=== PATIENT | male | born 1940 | race Caucasian/White ===

== ENCOUNTER 2017-04-16 08:20 | Emergency (ER) | payer MEDICARE, BC ==
--- NOTE | ~2017-04-16 | ER ---
PATIENT'S NAME: ROBERTO CARLOS OVIEDO [facility] AGE: 76 Y [address] ROOM: [place] [address] LOCATION: [facility] ADMIT DATE: 04/16/2017 ER/Outpatient Report DISCHARGE DATE: 04/16/2017 FAMILY PHYSICIAN: Henry Pereira MD ATTENDING PHYSICIAN: Ten Henriquez CHIEF COMPLAINT: Fall. HISTORY OF PRESENT ILLNESS: Mr. Oviedo arrives by ambulance. He was out for a run today and in the parking lot of the [employer] when he apparently fell. He does not recall the fall. He has been a little confused per EMS but is ambulatory. He has multiple cuts to the face and right extremities. He denies any other symptoms at this time. He thinks he may have tripped but it is unclear. PAST MEDICAL HISTORY: Documented on the record and reviewed by me. SOCIAL HISTORY: Documented on the record and reviewed by me. MEDICATIONS: Documented on the record and reviewed by me. ALLERGIES: DOCUMENTED ON THE RECORD AND REVIEWED BY ME. REVIEW OF SYSTEMS: All systems reviewed and negative except as noted in the HPI. PHYSICAL EXAM: VITAL SIGNS: As follows blood pressure 140/89, pulse 89, respiratory rate 18, temperature 97.4, SpO2 is 93% on room air. GENERAL: Age-appropriate male. No obvious pain or distress. NEURO: GCS is 14, the patient is not oriented to date. He is awake, otherwise, follows commands in all extremities. No focal deficits. He does have a mild anterolateral grade amnesia to the event. HEENT: Grossly normocephalic. There is a large area confined ecchymosis to the right lateral forehead with some abrasions. The nose has multiple abrasions, not requiring repair, no septal hematoma. Dried blood in the naris bilateral. The upper and lower lips are macerated with multiple cuts. The right front and adjacent tooth are chipped LS2 both. The tongue is normal. NECK: Supple. Trachea is midline. PATIENT'S NAME: ROBERTO CARLOS OVIEDO [facility] AGE: 76 Y [address] ROOM: [place] [id number] LOCATION: [facility] ADMIT DATE: 04/16/2017 ER/Outpatient Report DISCHARGE DATE: 04/16/2017 FAMILY PHYSICIAN: Henry Pereira MD ATTENDING PHYSICIAN: Ten Henriquez CHEST: Nontender to palpation. HEART: Regular rate and rhythm with no murmurs. LUNGS: Clear to auscultation bilaterally. No rhonchi, wheezes, or rales. ABDOMEN: Soft, nontender, and nondistended. No rebound or guarding. BACK: Normal to inspection and palpation. EXTREMITIES: The right extremity is notable for multiple cuts over the dorsum of the hand across the forearm. Most superficial. There is embedded piece of stone in the distal phalanx of the right pinky and a large flap over the PIP dorsally on the right pinky finger with exposed tendon. No tendon involvement. The right knee with multiple abrasions or contusions. No lacerations, nontender to palpation. SKIN: Otherwise intact. LABORATORY DATA AND X-RAYS: Head CT facial of bones and C-spine CT are all negative per Radiology. Chest x-ray does not reveal any aspirated foreign bodies per my review. EKG reveals sinus rhythm, rate of 80 with normal intervals. Left axis deviation but otherwise unremarkable. No comparison available. CMS with no appreciable abnormalities. CBC is unremarkable. IMPRESSION: 1. Fall with syncope. 2. Multiple facial lacerations and abrasions with tooth fracture. 3. Right hand contusions and abrasions, requiring repair. 4. Multiple lower extremity abrasions, not requiring repair. EMERGENCY DEPARTMENT COURSE: The patient was seen and evaluated as above. CT was obtained to evaluate for any occult fracture in the setting of amnesia. No intracranial hemorrhage or other emergency. No clear reason for patient to have syncopized medically. It appears as though he likely tripped during his run. I did repair the lacerations to his upper and lower lip. Upper lip measured a total of 2.1 cm in total length and required five sutures of 6-0 nylon and Prolene to approximate the lacerations. The lower lip received three 6-0 sutures to approximate. These wounds were copiously explored, irrigated, and palpated, and no foreign material was identified. There were some tooth fragments that were removed from the upper and lower lip. This was prior to the CT scan. The right pinky finger laceration was repaired with 5-0 Nylon suture. Three simple interrupted sutures were placed after performing digital block with 1% lidocaine on the pinky finger and exploring the laceration in a bloodless field and ensuring that there was no tendon or joint capsule involvement. The tendon was explored in its entire range. The area was copiously irrigated and debrided as much as possible. The patient will be started on Keflex for prophylaxis and we will have him PATIENT'S NAME: ROBERTO CARLOS OVIEDO [facility] AGE: 76 Y [address] ROOM: [place] [address] LOCATION: [facility] ADMIT DATE: 04/16/2017 ER/Outpatient Report DISCHARGE DATE: 04/16/2017 FAMILY PHYSICIAN: Henry Pereira MD ATTENDING PHYSICIAN: Ten Henriquez follow up with Dr. Pereira in 3-5 days for suture removal. I did discuss the case with Dr. Pereira to confirm the patient has no significant medical history and Dr. Pereira confirms. The patient should return immediately if there is any other signs or symptoms that are concerning for such. He does in fact have a concussion. MD MARIAH ARNOLD/francisco /[id number] d: 04/16/17 1853 t: 04/22/17 0633, OUTPATIENT REPORT
[2017-04-16 08:54] LABS: BASOPHIL # 0.1 K/uL (0.0-0.2); BASOPHIL % 2.2 %; EOSINOPHIL # 0.2 K/uL (0.0-0.5); EOSINOPHIL % 3.3 %; HEMATOCRIT 45.6 % (37.0-53.0); HEMOGLOBIN 16.2 g/dL (11.0-16.0); IMMATURE GRANULOCYTE % 0.3 %; LYMPHOCYTE % 16.9 %; MCH 33.2 pg (27.0-34.0); MCHC 35.5 gm/dL (32.0-36.5); MCV 93.4 fl (83.0-98.0); MONOCYTE # 0.5 K/uL (0.0-1.0); MPV 9.2 fl (9.4-12.4); NEUTROPHIL # (ANC) 4.1 K/uL (1.4-9.0); NEUTROPHIL % 68.3 %; NRBC % 0 /100WBC (0-0.00); PLATELET COUNT 252 K/uL (150-450); RBC 4.88 M/uL (3.50-5.50); RDW-CV 11.9 % (11.9-14.6)
[2017-04-16 09:09] LABS: ALBUMIN 3.7 gm/dL (3.5-5.0); ANION GAP 12.1 (10.0-19.0); CALCIUM 9.2 mg/dL (8.5-10.5); CREATININE 1.1 mg/dL (0.6-1.3); POTASSIUM 4.1 mMol/L (3.7-5.1); TOTAL BILIRUBIN 0.7 mg/dL (0.0-1.5); TOTAL PROTEIN 7.2 g/dL (6.0-8.4)
== END 2017-04-16 10:06 | disposition disaster alternative care site (69) ==
LOC: GACC 08:20
PROVIDERS: Emergency Medicine
PROC: 0CQ1XZZ Repair Lower Lip, External Approach (ICD-10-PCS; principal; 2017-04-16)
PROC: 0CQ0XZZ Repair Upper Lip, External Approach (ICD-10-PCS; 2017-04-16)
PROC: 0HQFXZZ Repair Right Hand Skin, External Approach (ICD-10-PCS; 2017-04-16)
DX: S02.5XXA Fracture of tooth (traumatic), initial encounter for closed fracture (principal); S01.81XA Laceration without foreign body of other part of head, initial encounter; S61.216A Laceration without foreign body of right little finger without damage to nail, initial encounter; S01.511A Laceration without foreign body of lip, initial encounter; K21.9 Gastro-esophageal reflux disease without esophagitis; S81.811A Laceration without foreign body, right lower leg, initial encounter; S60.221A Contusion of right hand, initial encounter; Z79.899 Other long term (current) drug therapy; W19.XXXA Unspecified fall, initial encounter; Y93.02 Activity, running; Y92.481 Parking lot as the place of occurrence of the external cause

== ENCOUNTER → 2017-04-16 | Outpatient (CLI) | payer MEDICARE | END | disposition disaster alternative care site (69) | LOC: GAMB 08:01 | DX: S09.90XA Unspecified injury of head, initial encounter (principal); S06.2X9A Diffuse traumatic brain injury with loss of consciousness of unspecified duration, initial encounter; S01.21XA Laceration without foreign body of nose, initial encounter; S01.511A Laceration without foreign body of lip, initial encounter; R41.0 Disorientation, unspecified; R29.6 Repeated falls; W01.0XXA Fall on same level from slipping, tripping and stumbling without subsequent striking against object, initial encounter | CPT/HCPCS: A0425; A0429 ==